=== PATIENT | female | born 1970 | race Caucasian/White ===

== ENCOUNTER 2017-02-12 16:17 | Emergency (ER) | payer OTHER ==
[2017-02-12 19:00] LABS: BASOPHIL % 0.3 % (0-2)
[2017-02-12 19:03] LABS: CALCIUM 8.6 mg/dL (8.5-10.1); CARBON DIOXIDE 29.1 mmol/L (21-32); CHLORIDE SERUM 105 mmol/L (98-107); CREATININE SERUM 0.7 mg/dL (0.6-1.0); GFR1 > 60 mL/min; GLUCOSE SERUM 95 mg/dL (74-106); POTASSIUM SERUM 3.5 mmol/L (3.5-5.1); SODIUM SERUM 141 mmol/L (136-145)
[2017-02-12 19:06] LABS: RED CELL DISTRIBUTION WIDTH 20.3 % (11.5-14.5)
[2017-02-12 19:07] LABS: PLATELET COUNT 610 x10^3mcL (130-400)
[2017-02-12 19:08] LABS: ALKALINE PHOSPHATASE 61 U/L (46-116); ALT/SGPT 17 U/L (14-59); AST/SGOT 14 U/L (15-37); BILIRUBIN TOTAL 0.3 mg/dL (0.20-1.00); TOTAL PROTEIN, SERUM 7.6 g/dL (6.4-8.2)
[2017-02-12 19:09] LABS: ALBUMIN 2.9 g/dL (3.4-5.0)
[2017-02-12 19:38] LABS: rbc morphology (normal/abnorm) ABNORMAL (NORMAL)
[2017-02-12 20:20] VITALS: BP 106/55
== END 2017-02-12 20:20 | disposition home or self-care (01) ==
LOC: ED 16:17
PROVIDERS: Emergency Medicine
DX: D25.9 Leiomyoma of uterus, unspecified (principal); D64.9 Anemia, unspecified
CPT/HCPCS: 36415; J1885

== ENCOUNTER 2017-04-17 18:11 | Emergency (ER) | payer OTHER ==
[~2017-04-17] VITALS: Ht 154.9 cm; Wt 74.5 kg
[2017-04-17 18:18] VITALS: BP 103/59; Ht 154.9 cm; Wt 74.5 kg
== END 2017-04-17 20:44 | disposition home or self-care (01) ==
LOC: ED 18:11
DX: Z43.3 Encounter for attention to colostomy (principal)

== ENCOUNTER 2017-11-30 19:48 | Inpatient (IN) | payer OTHER ==
[~2017-11-30] VITALS: Ht 165.1 cm; Wt 91.0 kg
[2017-11-30 21:56] LABS: BASOPHIL % 0.7 % (0-2); PLATELET COUNT 350 x10^3mcL (130-400)
[2017-11-30 21:58] LABS: RED CELL DISTRIBUTION WIDTH 18.6 % (11.5-14.5)
[2017-11-30 22:07] LABS: ALKALINE PHOSPHATASE 137 U/L (46-116); ALT/SGPT 64 U/L (14-59); AST/SGOT 44 U/L (15-37); BILIRUBIN TOTAL 0.41 mg/dL (0.20-1.00); CALCIUM 8.3 mg/dL (8.5-10.1); CHLORIDE SERUM 100 mmol/L (98-107); CREATININE SERUM 0.9 mg/dL (0.6-1.0); GFR1 > 60 mL/min; GLUCOSE SERUM 123 mg/dL (74-106); SODIUM SERUM 133 mmol/L (136-145); TOTAL PROTEIN, SERUM 7.6 g/dL (6.4-8.2)
[2017-11-30 22:12] LABS: ALBUMIN 2.7 g/dL (3.4-5.0); POTASSIUM SERUM 2.9 mmol/L (3.5-5.1)
[2017-11-30 23:33] LABS: UA SPECIFIC GRAVITY 1.025 (1.005-1.035); microscopic required? YES; urine erythrocyte TRACE (NEGATIVE)
[2017-12-01 06:32] VITALS: BP 115/55
[2017-12-01 08:06] LABS: FREE T4 1.09 ng/dL (0.76-1.46); FREE THYROXINE INDEX 3.1 ug/dL (1.4-4.5); T4(THYROXINE) 10.7 ug/dL (4.7-13.3)
[2017-12-01 08:22] LABS: T3 TOTAL 1.59 ng/mL
[2017-12-01 08:29] VITALS: Ht 165.1 cm; Wt 91.0 kg
[2017-12-01 11:38] VITALS: BP 97/64
[2017-12-01 15:53] VITALS: BP 107/53
[2017-12-01 19:35] VITALS: BP 105/54
[2017-12-02 00:10] VITALS: BP 97/53
[2017-12-02 03:30] VITALS: BP 90/53
[2017-12-02 05:20] LABS: BASOPHIL % 0.7 % (0-2); PLATELET COUNT 292 x10^3mcL (130-400)
[2017-12-02 05:22] LABS: RED CELL DISTRIBUTION WIDTH 18.7 % (11.5-14.5)
[2017-12-02 05:37] LABS: CARBON DIOXIDE 25.6 mmol/L (21-32); CHLORIDE SERUM 108 mmol/L (98-107); CREATININE SERUM 0.7 mg/dL (0.6-1.0); GFR1 > 60 mL/min; GLUCOSE SERUM 110 mg/dL (74-106); MAGNESIUM 2.1 mg/dL (1.8-2.4); PHOSPHOROUS 3.7 mg/dL (2.5-4.9); POTASSIUM SERUM 4.2 mmol/L (3.5-5.1); SODIUM SERUM 141 mmol/L (136-145)
[2017-12-02 07:35] VITALS: BP 117/63
[2017-12-02 11:20] VITALS: BP 101/48
[2017-12-02 15:00] VITALS: BP 107/60
[2017-12-02 20:56] VITALS: BP 105/51
[2017-12-03 05:10] VITALS: BP 100/54
[2017-12-03 06:22] LABS: BASOPHIL % 0.9 % (0-2); PLATELET COUNT 320 x10^3mcL (130-400)
[2017-12-03 06:26] LABS: CALCIUM 8.2 mg/dL (8.5-10.1); CARBON DIOXIDE 23.7 mmol/L (21-32); CHLORIDE SERUM 109 mmol/L (98-107); CREATININE SERUM 0.6 mg/dL (0.6-1.0); GFR1 > 60 mL/min; GLUCOSE SERUM 119 mg/dL (74-106); MAGNESIUM 2.1 mg/dL (1.8-2.4); PHOSPHOROUS 3.8 mg/dL (2.5-4.9); POTASSIUM SERUM 3.2 mmol/L (3.5-5.1); SODIUM SERUM 142 mmol/L (136-145)
[2017-12-03 06:33] LABS: RED CELL DISTRIBUTION WIDTH 18.5 % (11.5-14.5)
[2017-12-03 08:00] VITALS: BP 98/46
[2017-12-03] MEDS ORDERED: COUMADIN3 MG PO (12:49)
[2017-12-03 13:10] VITALS: BP 108/67
[2017-12-03 14:24] VITALS: BP 108/67
[2017-12-03 16:33] VITALS: BP 97/53
== END 2017-12-03 17:11 | disposition home or self-care (01) | DRG 134 ==
LOC: ED 19:48 → IC 12-01 04:38 → DU 12-01 04:38 → IC 12-01 06:05 → DU 12-01 06:15 → IC 12-01 06:15 → DU 12-02 17:37
PROVIDERS: Emergency Medicine; Internal Medicine
DX: I26.99 Other pulmonary embolism without acute cor pulmonale (principal); N17.0 Acute kidney failure with tubular necrosis; E43 Unspecified severe protein-calorie malnutrition; J18.9 Pneumonia, unspecified organism; C18.9 Malignant neoplasm of colon, unspecified; R73.03 Prediabetes; E78.5 Hyperlipidemia, unspecified; E87.6 Hypokalemia; R74.0 Nonspecific elevation of levels of transaminase and lactic acid dehydrogenase [LDH]; Z93.2 Ileostomy status; Z68.35 Body mass index [BMI] 35.0-35.9, adult
CPT/HCPCS: 83880; 84439; 85378; J1650; J1885; J1956; J2270; J2405; J3010; J3475; J3480; J3490; J7030; Q0092; Q9967